=== PATIENT | female | born 1990 | race Caucasian/White ===

== ENCOUNTER 2025-04-24 10:15 | Outpatient (RCR) | payer OTHER, SELFPAY ==
--- NOTE | 2025-04-17 17:01 | PTOPEVAL1 ---
Assessment and note entered by Tia Mccormick, PT Evaluation Information Assessment Status Evaluation ICD-10 Condition Codes (PT) Pain in Thoracic Spine M54.6,Pain in low back M54. 50,Pain in left shoulder M25.512 Subjective Information Pt reports pain is usually under the left shoulder blade usually and shoots down. Today had increased lumbar left sided back pain after sleeping in bed with her . Reports has had this about 7-8 years, but has progressed lately. Is worried if she doesn't do something about it now it will worsen. Feels some relief with pushing her ack against something like a back rest. Feels like after having first son and breast feeding is when she first noted increased pain. Feels like bra or jeans that are too tight feels the stinging going down her back. 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 Sometimes will feel like a shock, and sometimes will feel tingling or numb/asleep Reported Pain Level Pain Score 4,3: Self Report Assessment PT Clinical Summary Pt presents with complaints of chronic pain in the left shoulder and left lumbar spine. Pt demonstrates possible leg length discrepancy and pelvic uplsip, kyphotic posture, forward head, multiple muscles with (+) tone and tenderness, decreased ROM lumbar and thoracic spine. Pt will greatly benefit from physical therapy in order to address alignment, decrease pain, and all improved function with less pain. Plan of Care Interventions Electrical Stimulation,Hot Pack/Cold Pack,Manual Therapy,Mechanical Traction,Neuro Re-education, Therapeutic Activities,Therapeutic Exercise,Self- Care/Home Management,Ultrasound,Other Other Interventions Taping PT Services Indicated Yes Treatment Frequency and 2x weekly x 20 visits Duration These treatments will address the objective and functional deficits as defined above. The patient will be advanced safely and appropriately in order for the patient to progress towards his/her prior level of function. Additional exercises will be introduced and as well as a comprehensive home exercise program upon discharge, if needed, ?to ensure carryover of functional gains achieved in the clinic. This treatment plan has been reviewed and agreement upon by the patient.
--- NOTE | 2025-04-17 17:01 | OPREHPOC ---
Outpatient Therapy Plan of Care This is a Multidisciplinary Plan of Care that may contain components documented by all disciplines (PT, OT, and ST.) PT Problem 1 PT Problem #1 Knowledge Deficit PT Goal 1 Goal / Goal Update Pt will be independent in HEP Target Visit 10 PT Problem 2 PT Problem #2 Pain PT Goal 1 Goal / Goal Update Pt will report greatest levels of pain at 5/10 to show improved pain Target Visit 10 PT Goal 2 Goal / Goal Update Pt will greatest pain at 3/10 in order to improve lifestyle Target Visit 20 PT Problem 3 PT Problem #3 Impaired Range of Motion PT Goal 1 Goal / Goal Update Pt will demonstrate thoracic ROM of 50% or greater to offload strain and stress on facets. Target Visit 10 PT Goal 2 Goal / Goal Update Pt will show ROM thoracic and lumbar ROM 75% to improved mobility, reduced strain on spine, and reduced pain Target Visit 20
--- NOTE | 2025-04-28 15:02 | PCPTNOTE ---
Pt cancelled scheduled physical therapy appointment this date with no reason given for cancellation.
--- NOTE | 2025-05-01 11:40 | PCPTNOTE ---
Pt no showed to scheduled physical therapy appointment this date.
--- NOTE | 2025-05-20 10:54 | PTOPDC ---
Assessment and note entered by Tia Mccormick, PT Evaluation Information Assessment Status Discharge - Pt Not Present ICD-10 Condition Codes (PT) Pain in Thoracic Spine M54.6,Pain in low back M54. 50,Pain in left shoulder M25.512 Assessment PT Clinical Summary Pt presented for evaluation and one treatment visit only. She cancelled one appt, ncns one appointment, and we were unable to reach her for further scheduling. It has been 26 days since her evaluation thus she is being discharged for non- attendance. Pt may restart therapy plan of care at any time with an updated prescription. Plan of Care PT Services Indicated No
--- NOTE | 2025-05-26 09:46 | PTOPDC ---
Assessment and note entered by Tia Mccormick, PT Evaluation Information Assessment Status Discharge - Pt Not Present ICD-10 Condition Codes (PT) Pain in Thoracic Spine M54.6,Pain in low back M54. 50,Pain in left shoulder M25.512 Assessment PT Clinical Summary Pt attended evaluation and one therapy session. She no-call, no-showed 1 visit, then cancelled one visit. We were unable to contact patient for scheduling. After approx 25 days, she returned our communication and was scheduled to reinitiate therapy today. She did not show for her appointment today, and when was contacted she cancelled her remaining appointments. Thus patient is being discharged for nonattendance. Plan of Care PT Services Indicated No
== END 2025-05-26 10:18 | disposition home or self-care (01) ==
LOC: ANHHIPT 10:15
PROVIDERS: PCP Nurse Practitioner Adult Health; Visit Provider Nurse Practitioner Adult Health
DX: M54.6 Pain in thoracic spine (principal); G89.29 Other chronic pain
CPT/HCPCS: 97014; 97110; 97112; 97161; G0283